=== PATIENT | female | born 1940 | race Caucasian/White ===

== ENCOUNTER 2018-05-23 06:27 | Emergency (ER) | payer MEDICARE, OTHER, SELFPAY ==
[2018-05-23 06:29] VITALS: BP 152/116; PULSE 72; RESP 16; TEMP 37.1; O2SAT 91; BMI 31.4
[2018-05-23 07:34] LABS: Hematocrit 42.1 % (37-47); Hemoglobin 14.3 g/dl (12.0-15.0); Mean Corpuscular Hgb 29.4 pg (27.0-32.0); Mean Corpuscular Volume 86.6 fL (81-99); Mean Platelet Vol. 9.3 fl (6.2-12.0); Platelet Count 154 K/mm3 (150-450); RBC Distribution Width CV 13.3 % (11.6-14.6); RBC Distribution Width SD 41.4 fl (35.1-43.9); Red Blood Count 4.86 M/mm3 (4.2-5.4); White Blood Count 11.2 K/mm3 (4.4-11.0)
[2018-05-23 07:37] LABS: Scan Indicated on CBC? Y/N NO
[2018-05-23 07:54] LABS: ALB/GLOB Ratio 0.9 RATIO (0.9-2.4); AST(SGOT) 19 U/L (15-37); Alanine Aminotransfer ALT/SGPT 14 U/L (13-56); Albumin, Serum 3.2 g/dL (3.2-5.0); Alkaline Phosphatase 90 U/L (45-117); Anion Gap 9 (5-15); BUN 11 mg/dL (7-18); BUN/Creat Ratio 11.5 RATIO (10-20); CPK Total, Creatine Kinase 63 U/L (26-192); Calcium,Total 9.2 mg/dL (8.5-10.1); Chloride 109 mmol/L (98-107); Creatinine, Serum 0.96 mg/dL (0.55-1.02); EST Glomerular Filtration Rate 60 mL/min (>60); Est Glom Filt Rate - Afr Amer 72 mL/min (>60); Estimated Creatinine Clearance 46.97 ml/min; Globulin 3.4 g/dL (2.2-4.2); Glucose 222 mg/dL (74-106); Potassium 4.2 mmol/L (3.5-5.1); Protein, Total 6.6 g/dL (6.4-8.2); Sodium Level 143 mmol/L (136-145)
--- NOTE | 2018-05-23 08:20 | ED.VISSUMM ---
- ER Visit Summary Date of Service: 05/23/18 Chief Complaint: Fall History of Present Illness: The patient is a 77 F who presents after a fall that occurred 2 hours prior to arrival. Patient states she lost her balance while she was changing her diaper. Patient denies any loss of consciousness. Patient did hit her right face and eyebrow area. Patient also complains of pain in her left hand. Patient describes her pain is dull and aching. Patient denies any paresthesias or weakness. Patient states her last tetanus was less than 5 years ago. Patient states she has a history of rheumatoid arthritis and always has a lot of joint pain. Physical Examination: Vital signs are stable. Patient is afebrile. Patient is in no acute distress. Pupils are equal, round, reactive to light bilaterally. Extraocular muscles are intact. There is tenderness over the right infraorbital area. There is no bony crepitance or step-off. There is also tenderness and ecchymosis over the bridge of the nose. There is also a superficial laceration over the right side of the bridge of the nose. There is no septal deviation or septal hematoma noted. There is a 1.5 cm linear laceration over the lateral aspect of the right eyebrow area. There is minimal gapping of the wound margins. There are no foreign bodies noted. There is also superficial abrasion of the right forehead. Neck is supple. Trachea is midline. There is no JVD noted. Heart was regular rate and rhythm. Lungs are clear and equal bilaterally. There is adequate respiratory effort noted. Abdomen is soft. Bowel sounds are normal. There is no tenderness noted. Musculoskeletal exam revealed tenderness, edema, and ecchymosis over the dorsal aspect of the left hand. There is also some edema and ecchymosis over the knees bilaterally. There is some tenderness over the hips bilaterally as well. There is no deformity noted. Range of motion was limited in all motions of the left hand, bilateral hips, and bilateral knees secondary to pain. Strength is 5/5 bilateral in the upper and lower extremities. There are no sensory deficits noted. The remaining physical exam is within normal limits. Test Results: CT scan of the facial bones and brain were obtained. There is no acute fracture. There is no acute intracranial abnormality. X-rays of the hips and knees bilaterally were obtained. There are degenerative changes. There is no acute fracture. X-ray of the left hand does not show any acute fracture. Urinalysis was within normal limits. CBC and metabolic profile were essentially within normal limits. Emergency Department Course and Treatment: The wounds over the right periorbital area and bridge of the nose were cleaned and closed with Dermabond skin adhesive. Patient feels well enough to go home. Patient states she feels like she will be able to take care of herself at home. Patient was instructed to follow-up with her primary care physician in 5-7 days. Patient and family understood and were agreeable with the plan. All questions were answered. Disposition: Discharge home Impression: Right forehead laceration, nasal laceration, right hand contusion, bilateral knee contusions This note was generated with [employer] dictation software. It may contain incorrect words, spelling, and punctuation that were not noted in review of the chart prior to signing ED Disposition - Plan for ED Patient: Disposition: Home or Assisted Living Chief Complaint: Fall Instructions: ED Mechanical Fall, ED Laceration All Referrals: Care Physician,No Primary [Primary Care Provider] -
[2018-05-23 08:49] LABS: Bacteria 0 SEEN /hpf (None Seen); Mucous, Urine 0 SEEN /hpf (<or=2+); Squamous Epithelial Cells - UA 0 SEEN /hpf (5-10); White Blood Cells 0 SEEN /hpf (0-5)
[2018-05-23 08:53] LABS: Color, Urine Straw (Yellow); Glucose, Dipstick 100 mg/dl (Normal); Ketone-Dipstick Negative (Negative); Leukocyte Esterase-Dipstick Negative /ul (Negative); Nitrite-Dipstick Negative (Negative); Occult Blood-Urine 10 /ul (Negative); Protein-Dipstick 30 mg/dl (Negative); Specific Gravity, Urine 1.015 (1.002-1.030); Urine Bilirubin Dipstick Negative (Negative); Urine Clarity Clear (Clear); Urine Urobilinogen Normal (Normal)
[2018-05-23 09:04] LABS: Hyaline Cast 0-5 SEEN /lpf (0-5); Red Blood Cells-Urine 0-5 SEEN /hpf (0-5)
[2018-05-23 10:17] VITALS: BP 190/68; PULSE 75; RESP 20; O2SAT 93
== END 2018-05-23 10:30 | disposition home or self-care (01) ==
PROVIDERS: Emergency Provider Emergency Medicine
DX: S01.81XA Laceration without foreign body of other part of head, initial encounter (principal); S01.21XA Laceration without foreign body of nose, initial encounter; S60.221A Contusion of right hand, initial encounter; S80.02XA Contusion of left knee, initial encounter; S80.01XA Contusion of right knee, initial encounter; W18.39XA Other fall on same level, initial encounter; Y93.89 Activity, other specified; Y92.9 Unspecified place or not applicable; M06.9 Rheumatoid arthritis, unspecified; I25.10 Atherosclerotic heart disease of native coronary artery without angina pectoris; I10 Essential (primary) hypertension; Z79.899 Other long term (current) drug therapy
CPT/HCPCS: 12011; 70450; 70486; 73130; 73521; 73560; 80053; 81001; 82550; 85027; 99285; A4216